=== PATIENT | male | born 1980 | race Caucasian/White ===

== ENCOUNTER 2017-08-31 20:50 | Inpatient (IN) | payer OTHER ==
[2017-09-01] MEDS: SOD CHLORIDE 0.9% 1,000 ML IV (01:45)
[2017-09-01] MEDS: KETOROLAC 30 MG INJ IV (01:46)
[2017-09-01 04:47] LABS: URINE BLOOD (Dip) POC Trace-lysed (NEGATIVE); URINE GLUCOSE (Dip) POC Negative (NEGATIVE); URINE KETONES (Dip) POC Negative (NEGATIVE); URINE LEUKOCYTE EST (Dip) POC 1+ (NEGATIVE); URINE NITRITE (Dip) POC Positive (NEGATIVE); URINE TOTAL PROTEIN POC 1+ (NEGATIVE)
[2017-09-01] MEDS: CEFEPIME 1GM/50 ML (PMX) 50 ML IVPB (05:08)
[2017-09-01 06:20] LABS: ADD UMIC YES; UR ASCORBIC ACID NEGATIVE (NEGATIVE); UR BACTERIA MANY /HPF (NONE SEEN); UR BILIRUBIN (Dip) NEGATIVE (NEGATIVE); UR BLOOD (Dip) 1+ mg/dL (NEGATIVE); UR CLARITY CLOUDY (CLEAR); UR COLOR YELLOW (YELLOW); UR GLUCOSE (Dip) NEGATIVE (NEGATIVE); UR KETONES (Dip) NEGATIVE (NEGATIVE); UR LEUKOCYTE ESTERASE (Dip) 3+ Leu/ul (NEGATIVE); UR MUCUS FEW /HPF (NONE SEEN); UR NITRITE (Dip) POSITIVE (NEGATIVE); UR NONSQUAMOUS EPITHELIAL CELL 8 /HPF (NONE SEEN); UR RBC 5 /HPF (0-5); UR SPECIFIC GRAVITY (Dip) 1.015 (1.003-1.030); UR SQUAMOUS EPITHELIAL CELL FEW /HPF (FEW); UR TOTAL PROTEIN (Dip) 1+ mg/dl (NEGATIVE); UR UROBILINOGEN (Dip) NEGATIVE (NEGATIVE); UR WBC 68 /HPF (0-5)
[2017-09-01] MEDS ORDERED: CEFEPIME 2GM/50 ML (PMX) 50 ML IVPB (08:06)
[2017-09-01 08:48] LABS: ADD MAN DIFF? NO
[2017-09-01 08:49] LABS: WHITE BLOOD COUNT 7.6 10^3/ul (4.8-10.8)
[2017-09-01 08:49] LABS: BASOPHILS % 0.4 % (0.0-2.0); EOSINOPHILS # 0.3 10^3/ul (0.0-0.5); EOSINOPHILS % 3.7 % (0.0-7.0); HEMATOCRIT 44.7 % (42.0-52.0); HEMOGLOBIN 14.8 g/dl (14.0-18.0); LYMPHOCYTES # 2.1 10^3/ul (0.8-2.9); LYMPHOCYTES % 26.9 % (15.0-51.0); MEAN CORPUSCULAR HEMOGLOBIN 29.2 pg (29.0-33.0); MEAN CORPUSCULAR HGB CONC 33.1 g/dl (32.0-37.0); MEAN CORPUSCULAR VOLUME 88.3 fl (82.0-101.0); MEAN PLATELET VOLUME 10.7 fl (7.4-10.4); MONOCYTES % 12.7 % (0.0-11.0); NEUTROPHIL # 4.3 10^3/ul (1.6-7.5); NEUTROPHILS % 55.9 % (39.0-77.0); PLATELET COUNT 206 10^3/UL (140-415); RED BLOOD COUNT 5.06 10^6/ul (4.70-6.10); RED CELL DISTRIBUTION WIDTH 13.6 % (11.5-14.5)
[2017-09-01 09:08] LABS: INR 1.04; PROTIME 13.7 Sec (11.9-14.9); PT RATIO 1.1
[2017-09-01 09:09] LABS: PARTIAL THROMBOPLASTIN TIME 30.4 Sec (25.0-35.0)
[2017-09-01 09:15] LABS: LACTIC ACID 0.9 mmol/L (0.5-2.0)
[2017-09-01] MEDS ORDERED: ACETAMINOPHEN 325 MG TAB PO (09:30)
[2017-09-01] MEDS ORDERED: ONDANSETRON 4 MG INJ IV (09:30)
[2017-09-01 09:32] LABS: ALANINE AMINOTRANSFERASE 19 IU/L (13-69); ALBUMIN 4.2 g/dl (3.3-4.9); ALKALINE PHOSPHATASE 55 IU/L (42-121); ANION GAP 10 (8-16); ASPARTATE AMINO TRANSFERASE 24 IU/L (15-46); BILIRUBIN,INDIRECT 0.1 mg/dl (0-1.1); BILIRUBIN,TOTAL 0.1 mg/dl (0.2-1.3); BLOOD UREA NITROGEN 15 mg/dl (7-20); CALCIUM 8.8 mg/dl (8.4-10.2); CARBON DIOXIDE 24 mmol/L (21-31); CHLORIDE 110 mmol/L (97-110); CREATININE 0.54 mg/dl (0.61-1.24); GLUCOSE 93 mg/dl (70-220); SODIUM 140 mmol/L (135-144); TOTAL PROTEIN 7.2 g/dl (6.1-8.1)
[2017-09-01 09:43] LABS: TROPONIN-I < 0.010 ng/ml (0.000-0.120)
[2017-09-01] MEDS: VANCOMYCIN 1 GM (PMX) 250 ML IVPB (09:57)
[2017-09-01] MEDS: SODIUM CHLORIDE 0.9% 1L BAG IV* (09:57)
[2017-09-01] MEDS: CEFEPIME 2GM/50 ML (PMX) 50 ML IVPB (13:00)
[2017-09-01 13:52] LABS: LACTIC ACID 1.3 mmol/L (0.5-2.0)
[2017-09-01] MEDS ORDERED: HYDROCODONE/APAP (5/325) TAB PO (16:00)
[2017-09-01] MEDS ORDERED: NACL 0.9% 3 ML SYG IV (16:00)
[2017-09-01 16:41] LABS: LACTIC ACID 0.9 mmol/L (0.5-2.0)
[2017-09-01] MEDS: morphine (ER) 30 MG TAB PO (17:06)
[2017-09-01] MEDS: oxyCODONE (CR) 15 MG TAB [oxyCONTIN] PO (17:18)
[2017-09-01] MEDS ORDERED: PENDING SANTYL ORDER FOR WOUND CARE XX (18:30)
[2017-09-01] MEDS ORDERED: morphine (ER) 30 MG TAB PO (21:00)
[2017-09-01] MEDS ORDERED: oxyCODONE (CR) 15 MG TAB [oxyCONTIN] PO (21:00)
[2017-09-01] MEDS ORDERED: CEFEPIME 1GM/50 ML (PMX) 50 ML IVPB (21:00)
[2017-09-01] MEDS: MEROPENEM 500MG/50 ML (PMX) 50 ML IVPB (21:18)
[2017-09-01] MEDS ORDERED: MEROPENEM 500MG/50 ML (PMX) 50 ML IVPB (22:00)
[2017-09-02] MEDS: MEROPENEM 500MG/50 ML (PMX) 50 ML IVPB (05:42)
[2017-09-02 05:46] LABS: ADD MAN DIFF? NO
[2017-09-02 05:59] LABS: BASOPHILS % 0.3 % (0.0-2.0); EOSINOPHILS # 0.3 10^3/ul (0.0-0.5); EOSINOPHILS % 4.6 % (0.0-7.0); HEMATOCRIT 41.9 % (42.0-52.0); HEMOGLOBIN 13.6 g/dl (14.0-18.0); LYMPHOCYTES # 1.4 10^3/ul (0.8-2.9); LYMPHOCYTES % 22.4 % (15.0-51.0); MEAN CORPUSCULAR HEMOGLOBIN 29.1 pg (29.0-33.0); MEAN CORPUSCULAR HGB CONC 32.5 g/dl (32.0-37.0); MEAN CORPUSCULAR VOLUME 89.5 fl (82.0-101.0); MEAN PLATELET VOLUME 10.9 fl (7.4-10.4); MONOCYTE # 0.8 10^3/ul (0.3-0.9); MONOCYTES % 11.9 % (0.0-11.0); NEUTROPHIL # 3.8 10^3/ul (1.6-7.5); NEUTROPHILS % 60.5 % (39.0-77.0); PLATELET COUNT 194 10^3/UL (140-415); RED BLOOD COUNT 4.68 10^6/ul (4.70-6.10); RED CELL DISTRIBUTION WIDTH 14.1 % (11.5-14.5)
[2017-09-02 05:59] LABS: WHITE BLOOD COUNT 6.3 10^3/ul (4.8-10.8)
[2017-09-02 06:26] LABS: ALANINE AMINOTRANSFERASE 21 IU/L (13-69); ALBUMIN 3.4 g/dl (3.3-4.9); ALBUMIN/GLOBULIN RATIO 1.17; ALKALINE PHOSPHATASE 43 IU/L (42-121); ANION GAP 9 (8-16); ASPARTATE AMINO TRANSFERASE 18 IU/L (15-46); BILIRUBIN,INDIRECT 0.1 mg/dl (0-1.1); BILIRUBIN,TOTAL 0.1 mg/dl (0.2-1.3); BLOOD UREA NITROGEN 14 mg/dl (7-20); CALCIUM 8.6 mg/dl (8.4-10.2); CARBON DIOXIDE 27 mmol/L (21-31); CHLORIDE 112 mmol/L (97-110); CREATININE 0.66 mg/dl (0.61-1.24); GLUCOSE 76 mg/dl (70-220); POTASSIUM 4.3 mmol/L (3.5-5.1); SODIUM 144 mmol/L (135-144); TOTAL PROTEIN 6.3 g/dl (6.1-8.1)
[2017-09-02] MEDS: morphine (ER) 30 MG TAB PO ×2 (09:00→21:00)
[2017-09-02] MEDS: oxyCODONE (CR) 15 MG TAB [oxyCONTIN] PO ×4 (09:00→21:07)
[2017-09-02] MEDS: ENOXAPARIN 30 MG/0.3 ML SYG SC (09:38)
[2017-09-02] MEDS: SOD CHLORIDE 0.9% 1,000 ML IV ×2 (11:07→21:06)
[2017-09-02] MEDS: LIDOCAINE 1% (MPF) 5 ML VIAL SC (14:12)
[2017-09-02] MEDS: CEFEPIME 1GM/50 ML (PMX) 50 ML IVPB (21:06)
[2017-09-02] MEDS: ALPRAZOLAM 1 MG TAB PO (22:31)
[2017-09-03] MEDS: SOD CHLORIDE 0.9% 1,000 ML IV ×3 (07:10→21:26)
[2017-09-03] MEDS: oxyCODONE (CR) 15 MG TAB [oxyCONTIN] PO ×2 (09:00→21:22)
[2017-09-03] MEDS: morphine (ER) 30 MG TAB PO ×2 (09:00→21:00)
[2017-09-03] MEDS: CEFEPIME 1GM/50 ML (PMX) 50 ML IVPB ×2 (09:19→21:22)
[2017-09-03] MEDS: ENOXAPARIN 30 MG/0.3 ML SYG SC (09:20)
[2017-09-03] MEDS: ALPRAZOLAM 1 MG TAB PO ×2 (10:35→23:15)
[2017-09-03] MEDS ORDERED: VANCOMYCIN IV PER PHARMACY XX (12:00)
[2017-09-03] MEDS: VANCOMYCIN 1.5 GM in SOD CHLORIDE 0.9% 250 ML IVPB (14:40)
[2017-09-03] MEDS: VANCOMYCIN 1 GM 250 ML IVPB (23:22)
[2017-09-04 07:07] LABS: CREATININE 0.59 mg/dl (0.61-1.24)
[2017-09-04 07:07] LABS: BLOOD UREA NITROGEN 13 mg/dl (7-20)
[2017-09-04] MEDS: VANCOMYCIN 1 GM 250 ML IVPB ×2 (08:11→16:15)
[2017-09-04] MEDS: ENOXAPARIN 30 MG/0.3 ML SYG SC (08:15)
[2017-09-04] MEDS: morphine (ER) 30 MG TAB PO ×2 (08:16→21:00)
[2017-09-04] MEDS: CEFEPIME 1GM/50 ML (PMX) 50 ML IVPB (10:33)
[2017-09-04] MEDS: oxyCODONE (CR) 15 MG TAB [oxyCONTIN] PO ×2 (10:35→21:00)
[2017-09-04] MEDS: SOD CHLORIDE 0.9% 1,000 ML IV ×2 (13:00→23:17)
[2017-09-04] MEDS: MEROPENEM 1 GM/50ML(PMX) 50 ML IVPB ×2 (15:40→23:17)
[2017-09-04 16:05] LABS: VANCOMYCIN,TROUGH 15.3 ug/ml (10.0-20.0)
[2017-09-04] MEDS ORDERED: MEROPENEM 1 GM/50ML(PMX) 50 ML IVPB (21:00)
[2017-09-04] MEDS: ALPRAZOLAM 1 MG TAB PO (21:16)
[2017-09-05] MEDS: VANCOMYCIN 750 MG in SOD CHLORIDE 0.9% 150 ML IVPB ×2 (00:11→08:19)
[2017-09-05] MEDS: oxyCODONE (CR) 15 MG TAB [oxyCONTIN] PO ×2 (08:21→21:00)
[2017-09-05] MEDS: SOD CHLORIDE 0.9% 1,000 ML IV ×2 (08:21→18:10)
[2017-09-05] MEDS: morphine (ER) 30 MG TAB PO ×2 (08:21→21:00)
[2017-09-05] MEDS: ALPRAZOLAM 1 MG TAB PO (09:05)
[2017-09-05] MEDS: ENOXAPARIN 30 MG/0.3 ML SYG SC (09:09)
[2017-09-05] MEDS: MEROPENEM 1 GM/50ML(PMX) 50 ML IVPB ×2 (10:49→18:54)
[2017-09-05] MEDS: AMOXICILLIN 500 MG CAP PO (21:46)
[2017-09-05] MEDS: L ACIDOPHIL/B LACTIS/B LONGUM CAPSULE PO (21:46)
== END 2017-09-06 00:30 | disposition home health service (06) | DRG 699 ==
LOC: MS2 09-04 18:30 → FTE 20:50 → MS2 09-01 09:26
PROC: 02HV33Z Insertion of Infusion Device into Superior Vena Cava, Percutaneous Approach (ICD-10-PCS; principal; 2017-09-02)
DX: T83.518A Infection and inflammatory reaction due to other urinary catheter, initial encounter (principal); N39.0 Urinary tract infection, site not specified; G82.20 Paraplegia, unspecified; N31.9 Neuromuscular dysfunction of bladder, unspecified; B96.20 Unspecified Escherichia coli [E. coli] as the cause of diseases classified elsewhere; B96.5 Pseudomonas (aeruginosa) (mallei) (pseudomallei) as the cause of diseases classified elsewhere; Y84.6 Urinary catheterization as the cause of abnormal reaction of the patient, or of later complication, without mention of misadventure at the time of the procedure; Y92.098 Other place in other non-institutional residence as the place of occurrence of the external cause; Z16.24 Resistance to multiple antibiotics
CPT/HCPCS: 36415; 36569; 71045; 76937; 80053; 80202; 81001; 81003; 82565; 83036; 83605; 84484; 84520; 85025; 85610; 85730; 87040; 87086; 93005; 96361; 96365; 96375; 99285-25